=== PATIENT | female | born 1930 | race Caucasian/White ===

== ENCOUNTER → 2018-04-11 | Outpatient (CLI) | payer MEDICARE, OTHER ==
[~2018-04-11] MED LIST: BUDESONIDE0.5 GM IH; HYDROCODON-ACE1 EAC9 PO; MELOXICAM7.5 MG PO; OMEPRAZOLE20 MG PO; PREDNISONE2.5 MG PO
--- NOTE | 2018-04-11 13:42 | Diagnostic Imaging Report ---
EXAMINATION: CT of the face HISTORY: Frontal headache, dizziness, sinusitis COMPARISON: None available TECHNIQUE: Multidetector helical axial images were acquired through the face without contrast and were reconstructed in bone and soft tissue algorithms. Images were viewed in multiplanar format. Dose modulation, iterative reconstruction, and/or weight based adjustment of the mA/kV was utilized to reduce the radiation dose to as low as reasonably achievable. FINDINGS: Bones: Unremarkable. Facial soft tissues: Unremarkable. Paranasal sinuses and drainage pathways: The frontal, ethmoidal, sphenoid and maxillary sinuses are clear. The ostiomeatal units, fronto-nasal and spheno-ethmoidal recesses are clear. Orbits contents: Unremarkable. Nasal septum: Deviated to the left with bone spur abutting the left inferior turbinate. Nasal cavities: Hypertrophy of the inferior turbinates. Otherwise no mass or polyp Anatomic variations: No significant anatomic variations. Dentition: No acute abnormality of the visualized teeth. 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 -Partially visualized chronic white matter microvascular ischemic changes. IMPRESSION: 1. The paranasal sinuses and drainage pathways are clear, no evidence of sinusitis. 2. Prominent left-sided nasal septal deviation. 3. Hypertrophy of the inferior turbinates. 4. 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 Signed by: Dr. Samia Kay M.D. on 04/11/2018 1:37 PM
== END ==
LOC: CT 12:23
PROVIDERS: ATTEND Otolaryngology Otolaryngology/Facial Plastic Surgery
DX: J32.0 Chronic maxillary sinusitis (principal); R22.0 Localized swelling, mass and lump, head; I65.21 Occlusion and stenosis of right carotid artery
CPT/HCPCS: 70486; 93880